=== PATIENT | female | born 1980 | race Caucasian/White ===

== ENCOUNTER → 2017-10-17 | Day surgery (SDC) | payer BC ==
[~2017-10-17] MED LIST: ACETAMINOPHEN 1000 MG/100 ML IV ONE; BACITRACIN 50,000 UNIT VIAL ONE; BACITRACIN ZINC 15 GM OINT ONE; BIRTH CONTROL; BUPIVACAINE HCL 0.5% INJ 30 ML VIAL INJ ONE; CEFAZOLIN SOD 2 GM/D5W 50ML 50 ML IV ONE; CITALOPRAM; DEXAMETHASONE SOD PHOS INJ 4 MG/ML VIAL ONE; FENTANYL CITRATE/PF 100MCG/2 ML INJ ONE; FLUOXETINE HCL20 MG PO; KETOROLAC TROMETHAMINE 30 MG/ML VIAL ONE; LIDOCAINE HCL 1% 2 ML AMP ONE; LIDOCAINE HCL 2% LOCAL INJ 5 ML SDV VIAL INJ ONE; MIDAZOLAM HCL 2 MG/2 ML VIAL ONE; ONDANSETRON HCL INJ 2 MG/ML VIAL ONE; PROPOFOL IV EMULSION 10 MG/ML 20 ML VIAL ONE; SEVOFLURANE INHAL SOLN 250 ML PEN BTL ONE; SINGULAIR10 MG; TYLENOL WITH C1 EACH PO; WELLBUTRIN SR150 MG PO; [UNRECOGNIZED DRUG - OTHER] PO
--- NOTE | 2017-10-18 01:15 | Operative Report ---
DATE OF PROCEDURE: October 17, 2017 PREOPERATIVE DIAGNOSES 1. Fractures of the 2nd and 3rd metatarsals of the right foot. 2. A fracture of the proximal phalanx of the 4th toe. POSTOPERATIVE DIAGNOSES 1. Fractures of the 2nd and 3rd metatarsals of the right foot. 2. A fracture of the proximal phalanx of the 4th toe. OPERATIONS/PROCEDURES PERFORMED 1. Patient underwent attempted closed reduction of the 2nd and 3rd metatarsals fractures. 2. Followed by an open reduction, internal fixation of the 3rd metatarsal fracture. 3. Open reduction, internal fixation of the 2nd metatarsal fracture. 4. Allograft bone grafting of both the 2nd and 3rd metatarsal fractures. 5. A closed reduction and percutaneous pinning of the 4th toe proximal phalanx fracture. 6. As well as an application of a well-padded splint. RECOVERY COACH: None. ANESTHESIA: General endotracheal anesthesia. IV FLUIDS: Per the anesthesia record. BRIEF DESCRIPTION OF OPERATIVE PROCEDURE: Ms. Guillaume was taken to the operating room and placed in supine position on operating table. Following induction of general anesthesia as well as endotracheal intubation, the patient's right lower extremity was examined under anesthesia. She was found to have bruising and swelling involving her foot. Fluoroscopic evaluation of the right foot demonstrated a displaced 2nd and 3rd metatarsal fracture, as well as a fracture of the proximal phalanx of the 4th toe. Attempts were made to reduce the patient's fractures in a closed fashion. Digital pressure was placed between the 2nd and 3rd metatarsals, but this failed to reduce the fractures. A #0.062 K-wire was inserted into the head of the 3rd metatarsal fracture and using the pin, the metatarsal fracture was manipulated and in attempt to realign the injury. This failed to produce acceptable reduction of the injury. The incision was, therefore, created between the 2nd and 3rd metatarsal. This incision was carried through skin only. Blunt dissection used to deepen the incision. The extensor tendons were identified and protected throughout the remainder of the case. The 3rd metatarsal shaft was identified and retracted in place along the medial and lateral portal of metatarsal shaft. The distal fracture fragment was found to be lodged in the muscle in the interspace between the 3rd and 4th metatarsal and this was freed. There was significant comminution involving the dorsal shaft of the 3rd metatarsal. The metatarsal was brought out to length and the K-wire was advanced capturing the metatarsal in its reduced position. The position of the K-wires as well as reduction of fracture was then assessed using fluoroscopy. Again, the dorsal comminution was illustrated on the patient's fluoroscopic pictures. Attention was then turned to the patient's 2nd metatarsal fracture. The dissection was carried over the 2nd metatarsal and again, soft tissue retractors were placed on the metatarsal shaft. The distal fracture fragment was identified and brought in line with the shaft of the metatarsal. A #0.060 K-wire was inserted from the plantar surface of the foot capturing the metatarsal in its reduced position. This wound was copiously irrigated. The comminuted fragments of the 3rd metatarsal were placed over the dorsal aspect of the metatarsal and the 2nd and 3rd metatarsals were then also bone grafted with combinations of cancellous chips and plate. This wound was then closed in a multilayer fashion. Attention was then turned to the patient's 4th toe proximal phalanx fracture. A #0.045 pin was inserted from distal to proximal transfixing the small toe metatarsal in its reduced position. Fluoroscopic evaluation of the foot at this time in both the AP, lateral and oblique planes identified reduction of the patient's metatarsal injuries with stabilization achieved through pin fixation. The patient's pins were dressed sterilely and the patient was provided a well-padded posterior splint with a toe plate to protect the forefoot. The patient was then awakened, taken to postanesthesia care unit in stable condition. Job#: [id number] CQ
== END | disposition home or self-care (01) ==
LOC: OR 10:11
PROVIDERS: ATTEND Specialist
PROC: 0QSN04Z Reposition Right Metatarsal with Internal Fixation Device, Open Approach (ICD-10-PCS; 2017-10-17)
PROC: 0QSQ34Z Reposition Right Toe Phalanx with Internal Fixation Device, Percutaneous Approach (ICD-10-PCS; 2017-10-17)
PROC: 0QSN04Z Reposition Right Metatarsal with Internal Fixation Device, Open Approach (ICD-10-PCS; principal; 2017-10-17 11:30)
DX: S92.331A Displaced fracture of third metatarsal bone, right foot, initial encounter for closed fracture (principal); S92.324A Nondisplaced fracture of second metatarsal bone, right foot, initial encounter for closed fracture; S92.511A Displaced fracture of proximal phalanx of right lesser toe(s), initial encounter for closed fracture; S92.344A Nondisplaced fracture of fourth metatarsal bone, right foot, initial encounter for closed fracture; Z68.33 Body mass index [BMI] 33.0-33.9, adult; W17.81XA Fall down embankment (hill), initial encounter; Y93.01 Activity, walking, marching and hiking
CPT/HCPCS: 28485 ×2; 28515; 36415; 76001; 84702; C1713; C1762; J1100; J1885; J2001 ×2; J2250; J2405

== ENCOUNTER 2018-03-06 13:43 | Outpatient (RCR) | payer BC ==
[~2018-03-06 13:43] MED LIST changes: -ACETAMINOPHEN 1000 MG/100 ML IV ONE; -BACITRACIN 50,000 UNIT VIAL ONE; -BACITRACIN ZINC 15 GM OINT ONE; -BUPIVACAINE HCL 0.5% INJ 30 ML VIAL INJ ONE; -CEFAZOLIN SOD 2 GM/D5W 50ML 50 ML IV ONE; -DEXAMETHASONE SOD PHOS INJ 4 MG/ML VIAL ONE; -FENTANYL CITRATE/PF 100MCG/2 ML INJ ONE; -KETOROLAC TROMETHAMINE 30 MG/ML VIAL ONE; -LIDOCAINE HCL 1% 2 ML AMP ONE; -LIDOCAINE HCL 2% LOCAL INJ 5 ML SDV VIAL INJ ONE; -MIDAZOLAM HCL 2 MG/2 ML VIAL ONE; -ONDANSETRON HCL INJ 2 MG/ML VIAL ONE; -PROPOFOL IV EMULSION 10 MG/ML 20 ML VIAL ONE; -SEVOFLURANE INHAL SOLN 250 ML PEN BTL ONE
== END 2018-03-24 ==
LOC: PT 13:43
PROVIDERS: ATTEND Specialist
DX: S92.331D Displaced fracture of third metatarsal bone, right foot, subsequent encounter for fracture with routine healing (principal); S92.324D Nondisplaced fracture of second metatarsal bone, right foot, subsequent encounter for fracture with routine healing; S92.344D Nondisplaced fracture of fourth metatarsal bone, right foot, subsequent encounter for fracture with routine healing; S92.511D Displaced fracture of proximal phalanx of right lesser toe(s), subsequent encounter for fracture with routine healing; Z48.89 Encounter for other specified surgical aftercare

== ENCOUNTER 2018-12-29 03:03 | Observation (INO) | payer BC ==
[~2018-12-29] VITALS: Ht 167.6 cm; Wt 104.3 kg
--- OUTSIDE RECORDS SUMMARY | 2018-12-29 03:06 | XMS REPORT | Continuity of Care Document ---
Author Author [employer] Address Unknown Phone Unavailable Care Team Providers Care Hospital Nurse Name Role Phone [employer] Unavailable Unavailable Problems Problem Status Onset Date Classification Date Reported Comments Source Viral upper respiratory tract infection 04/06/2017 Diagnosis 04/06/2017 [facility] Eustachian tube disorder 02/20/2016 Diagnosis 02/20/2016 [facility] Sore throat symptom 02/20/2016 Diagnosis 02/20/2016 [facility] Allergic rhinitis 02/20/2016 Diagnosis 02/20/2016 [facility] Eustachian Tube Disorder Problem 04/06/2017 [facility] Sore Throat Symptom Problem 04/06/2017 [facility] Influenza with Respiratory Manifestation Other than Pneumonia Problem 04/06/2017 [facility] Allergic Rhinitis Problem 04/06/2017 [facility] Medications Medication Details Route Status Patient Instructions Ordering Provider Order Date Source Control , Daily Active 10/16/2017 [facility] Citalopram , Daily Active 10/16/2017 [facility] Montelukast Sodium (Singulair) 10 Mg Tablet, Daily Active 10/16/2017 [facility] Beyaz 3 mg-0.02 mg-0.451 mg (24) tablet Beyaz 3 mg-0.02 mg-0.451 mg (24) tablet TK 1 T PO ONCE A DAY Active [facility] 24 HR Bupropion Hydrochloride 150 MG Extended Release Oral Tablet bupropion HCl XL 150 mg 24 hr tablet, extended release TAKE ONE (1) TABLET(S) BY MOUTH ONCE A DAY . TO BE TAKEN WITH WELLBUTRIN XL 300MG FOR A TOTAL OF 450MG. Active [facility] Citalopram 20 MG Oral Tablet citalopram 20 mg tablet Active [facility] Fluoxetine 20 MG Oral Capsule fluoxetine 20 mg capsule Active [facility] Fluoxetine 40 MG Oral Capsule fluoxetine 40 mg capsule TAKE TWO (2) CAPSULE(S) BY MOUTH ONCE A DAY IN THE MORNING. Active [facility] Medrol (Michelet) 4 mg tablets in a dose pack Medrol (Michelet) 4 mg tablets in a dose pack Take as directed on package. Active [facility] montelukast 10 MG Oral Tablet montelukast 10 mg tablet TAKE ONE (1) TABLET(S) BY MOUTH DAILY. Active [facility] levocetirizine dihydrochloride 5 MG Oral Tablet [Xyzal] Xyzal 5 mg tablet Take 1 tablet every day by oral route at bedtime for allergies for 30 days. Active [facility] Brompheniramine Maleate 0.4 MG/ML / Dextromethorphan Hydrobromide 2 MG/ML / Pseudoephedrine Hydrochloride 6 MG/ML Oral Solution [Bromfed DM] Bromfed DM 2 mg-30 mg-10 mg/5 mL syrup Take 5-10 mL EVERY 6-8 HOURS by oral route as needed. Active [facility] 24 HR Bupropion Hydrochloride 300 MG Extended Release Oral Tablet bupropion HCl XL 300 mg 24 hr tablet, extended release TAKE ONE (1) TABLET(S) BY MOUTH ONCE A DAY. Active [facility] Ciprofloxacin 3 MG/ML Ophthalmic Solution ciprofloxacin 0.3 % eye drops INSTILL ONE (1) DROP IN RIGHT EYE EVERY 30 MINUTES. Active [facility] drospiren-e.estrad-l.mefol 3 mg-0.02 mg-0.451 mg(24)/0.451 mg(4)tablet drospiren-e.estrad-l.mefol 3 mg-0.02 mg-0.451 mg(24)/0.451 mg(4)tablet TAKE ONE (1) TABLET(S) BY MOUTH ONCE A DAY. Active [facility] Acetaminophen 325 MG / Hydrocodone Bitartrate 7.5 MG Oral Tablet hydrocodone 7.5 mg-acetaminophen 325 mg tablet TAKE ONE (1) TABLET(S) BY MOUTH EVERY FOUR TO SIX HOURS NEEDED FOR EYE PAIN. Active [facility] NITROFURANTOIN, MACROCRYSTALS 25 MG / Nitrofurantoin, Monohydrate 75 MG Oral Capsule nitrofurantoin monohydrate/macrocrystals 100 mg capsule TAKE ONE (1) CAPSULE(S) BY MOUTH TWICE A DAY. Active [facility] Phenazopyridine hydrochloride 200 MG Oral Tablet phenazopyridine 200 mg tablet TAKE ONE (1) TABLET(S) BY MOUTH BEFORE MEALS. Active [facility] Sulfamethoxazole 800 MG / Trimethoprim 160 MG Oral Tablet sulfamethoxazole 800 mg-trimethoprim 160 mg tablet TAKE ONE (1) TABLET(S) BY MOUTH TWICE A DAY. Active [facility] Acetaminophen With Codeine (Tylenol With Codeine #3 Tablet) 1 Each Tablet As Needed Active [facility] B-Lizbet Control Daily Active [facility] Bupropion Hcl (Wellbutrin Sr) 150 Mg Tablet.er Daily Active [facility] Fluoxetine Hcl 20 Mg Capsule Twice A Day Active [facility] Allergies, Adverse Reactions, Alerts Substance Category Reaction Severity Reaction type Status Date Reported Comments Source Penicillins Allergy to substance 09/23/2011 [facility] Immunizations No Data Provided for This Section Results Order Name Results Value Reference Range Date Interpretation Comments Source Serum or plasma choriogonadotropin ( test) detection Serum or plasma choriogonadotropin ( test) detection NEGATIVE NEGATIVE 10/17/2017 [facility] Influenza A negative 04/06/2017 [facility] Influenza B negative 04/06/2017 [facility] RESULT negative 04/06/2017 [facility] SWAB LOCATION Left and Right tonsillar pillars 04/06/2017 [facility] RESULT negative 02/20/2016 [facility] SWAB LOCATION Left and Right tonsillar pillars 02/20/2016 [facility] RESULT negative 12/05/2015 [facility] SWAB LOCATION Left and Right tonsillar pillars 12/05/2015 [facility] Pathology Reports No Data Provided for This Section Diagnostic Reports No Data Provided for This Section Consultation Notes No Data Provided for This Section Discharge Summaries No Data Provided for This Section History and Physicals No Data Provided for This Section Vital Signs Vital Sign Value Date Comments Source Diastolic (mm Hg) 80 04/06/2017 [facility] Height 67 04/06/2017 [facility] Systolic (mm Hg) 120 04/06/2017 [facility] Weight 205 04/06/2017 [facility] Diastolic (mm Hg) 92 02/20/2016 [facility] Height 67 02/20/2016 [facility] Systolic (mm Hg) 132 02/20/2016 [facility] Weight 270 02/20/2016 [facility] Diastolic (mm Hg) 80 12/05/2015 [facility] Height 66 12/05/2015 [facility] Systolic (mm Hg) 126 12/05/2015 [facility] Weight 258 12/05/2015 [facility] Encounters Location Location Details Encounter Type Encounter Number Reason For Visit Attending Provider ADM Date DC Date Status Source [place] - [facility] - [id number] Britany Rich, FOLDED CLOTH TAPER: [address] [place] [address], Ph. [id number] Britany Layla 12/05/2015 [facility] [place] [facility] - [id number] Britany Rich, FOLDED CLOTH TAPER: [address] [place] [address], Ph. [id number] Britany Rich 02/20/2016 [facility] [place] [facility] - [id number] Crystal Michel, ART[employer] APPLICATOR, [address]: [address] [place] [address], Ph. [id number] Crystal Michel 04/06/2017 [facility] [id number] KT DUNN MD 10/17/2017 [facility] Discharged Recurring [id number] KT DUNN MD 03/06/2018 03/24/2018 [facility] Procedures Procedure Code Date Perfomer Comments Source TREAT METATARSAL FRACTURE 40307 10/17/2017 [facility] TREATMENT OF TOE FRACTURE [id number] 10/17/2017 DUNN [facility] REPOSITION RIGHT METATARSAL WITH INT FIX, OPEN APPROACH [id number] 10/17/2017 [facility] REPOSITION RIGHT TOE PHALANX WITH INT FIX, PERC APPROACH [id number] 10/17/2017 [facility] Delivery [facility] Delivery [id number] [facility] Assessment and Plan No Data Provided for This Section Plan of Care Plan of Care Date Source Prescriptions See Medication Section 03/25/2018 [facility] Social History Social History Date Source No social history information available. 03/25/2018 [facility] Smoking Status Never Smoker 09/23/2011 [facility] Family History No Data Provided for This Section Advance Directives Order Name Results Value Date Source Advance Directives Advance Directives Directive Response Recorded Date/Time Does the patient have an advance directive? No 11/22/14 12:52am If yes, is advance directive on file with [facility]? No 11/22/14 12:52am If not on file with [facility] will patient provide a copy? No 11/22/14 12:52am Do you have a Directive to Physician? No 02/15/18 11:29am Do you have a Medical Power of Ironworker? No 02/15/18 11:29am Do you have an out of hospital Do Not Resuscitate Order? No 02/15/18 11:29am Do you have any special needs we should be aware of? No 02/15/18 11:29am Do you have a support person here with you today? No 02/15/18 11:29am Did patient receive Notice of Privacy Practices? No 02/15/18 11:29am Did patient receive patient rights and responsibilities? No 02/15/18 11:29am 03/25/2018 [facility] Functional Status No Data Provided for This Section
--- OUTSIDE RECORDS SUMMARY | 2018-12-29 03:06 | XMS REPORT | Clinical Summary ---
Author Author [facility] Organization [facility] Address Unknown Phone Unavailable Care Team Providers Care Director Of Restaurant Operations Name Role Phone Gio Julio MD PCP Allergies No Known Allergies Medications End Date Status Medication Sig Dispensed Refills Start Date Active buPROPion XL (WELLBUTRIN TAKE ONE (1) 5 XL) 150 MG 24 hr tablet TABLET(S) BY 8 MOUTH ONCE A DAY (TAKE WITH BUPROPRION XL 300MG FOR A TOTAL OF 450MG). am Active buPROPion XL (WELLBUTRIN TAKE ONE (1) 5 XL) 300 MG 24 hr tablet TABLET(S) BY 8 MOUTH ONCE A DAY. am Active FLUoxetine (PROzac) 40 MG TAKE TWO (2) 5 capsule CAPSULE(S) BY 8 MOUTH ONCE A DAY IN THE MORNING. 07/16/2018 Discontinued drospirenone-e.estradiol- TAKE ONE (1) 11 lm.FA 3-0.02-0.451 mg TABLET(S) BY 8 (24) (4) tablet MOUTH ONCE A DAY. 07/30/2018 ibuprofen-famotidine Take 1 tablet 20 tablet 0 (DUEXIS) 800-26.6 mg by mouth 9 tablet every 8 (eight) hours as needed (mild pain) for up to 14 days. 07/30/2018 famotidine (PEPCID) 20 MG Take 1 tablet 28 tablet 0 tablet (20 mg total) 9 by mouth 2 (two) times a day for 14 days. 07/19/2018 traMADol-acetaminophen Take 2 20 tablet 0 (ULTRACET) 37.5-325 mg tablets by 9 per tablet mouth every 6 (six) hours as needed for moderate pain for up to 3 days. 08/15/2018 docusate sodium (COLACE) Take 1 60 capsule 0 100 MG capsule capsule (100 9 mg total) by mouth 2 (two) times a day for 30 days. Active Problems Not on file Encounters Care Team Description Date Type Specialty SeleneNancy nickersonuj Fibroids 08/28/2018 Office Visit Gynecologic Oncology SeleneNancyuj Pelvic pain in female 07/31/2018 Office Visit Gynecologic Oncology Octavia Robison MA 07/18/2018 Telephone Gynecologic Oncology Angelita Butt APRN 07/16/2018 Anesthesia Obstetrics and Gynecology Event SeleneNancy nickersonuj ROBOTIC HYSTERECTOMY, BILATERAL SALPINGECTOMY 07/16/2018 Surgery Obstetrics and Gynecology [facility] Dysmenorrhea 07/16/2018 Hospital Obstetrics and Gynecology Encounter Nancy Mortonuj 07/15/2018 Telephone Gynecologic Oncology Nancy Mortonuj 07/05/2018 [facility] Radiology Encounter SeleneNancyuj Pre-op evaluation 07/05/2018 Pre-Admit Pre-Admission Testing Testing Appointment Selene Alan 07/01/2018 Telephone Gynecologic Oncology Selene Alan 05/24/2018 Telephone Gynecologic Oncology SeleneNancyuj Excessive bleeding in premenopausal period (Primary Dx) 05/20/2018 Office Visit Gynecologic Oncology after 12/28/2017 Family History Medical History Relation Name Comments Cervical cancer Mother Relation Name Status Comments Mother Social History Date Tobacco Use Types Packs/Day Years Used Quit: 2015 Former Smoker Cigarettes Smokeless Tobacco: Never Used Alcohol Use Drinks/Week oz/Week Comments Yes 3 Standard 1.8 drinks or equivalent Sex Assigned at Date Recorded Not on file Industry Job Start Date Occupation Not on file Not on file Not on file Travel End Travel History Travel Start No recent travel history available. Last Filed Vital Signs Time Taken Vital Sign Reading 08/28/2018 10:41 AM BAG WASHER Blood Pressure 119/78 08/28/2018 10:41 AM BAG WASHER Pulse 90 07/16/2018 11:10 AM BAG WASHER Temperature 37.3 C (99.2 F) 07/16/2018 11:10 AM BAG WASHER Respiratory Rate 14 07/16/2018 11:10 AM BAG WASHER Oxygen Saturation 95% - Inhaled Oxygen - Concentration 08/28/2018 10:41 AM BAG WASHER Weight 106 kg (234 lb) 07/31/2018 10:14 AM BAG WASHER Height 167.6 cm (5' 6") 07/31/2018 10:14 AM BAG WASHER Body Mass Index 37.77 Plan of Treatment Health Maintenance Due Date Last Done Comments INFLUENZA VACCINE 01/23/2019 Procedures Comments Procedure Name Priority Date/Time Associated Diagnosis SURGICAL PATHOLOGY Routine 07/16/2018 REQUEST 11:31 AM BAG WASHER NC AN ELECTIVE Routine 07/16/2018 ENDOTRACHEAL AIRWAY 8:36 AM BAG WASHER Procedure Note - Molly Pitts CRNA - 07/16/2018 8:36 AM BAG WASHER ANESTHESIA INTUBATION Date/Time: 07/16/2018 8:17 AM Performed by: Molly Pitts CRNA Authorized by: Char Browne MD Location: OR Urgency: Elective Difficult Airway: No Anesthesio logist: Char Browne MD Resident/C RNA/AA: Molly Pitts CRNA Performed by: resident/C RNA/AA Mask Ventilatio n: Easy mask Final Airway Type: Endotrache al airway Final Endotrache al Airway: ETT Cuffed: Yes Technique Used: Direct laryngosco py Insertion Site: Oral Blade Type: Flores Laryngosco pe Blade/Vide olaryngosc ope Blade Size: 2 ETT Size (mm): 7.0 Cuff at minimum occlusion pressure: Yes Measured from: Lips ETT to Lips (cm): 21 Placement Verified by: CO2 detection, direct visualizat ion and equal breath sounds Laryngosco pic view: Grade I - full view of glottis Rapid Sequence Induction (RSI): No Modified RSI: No Number of Attempts at Approach: 1 Eyes taped at LOC prior to airway manipulati on. Cords clear, ETT passed with ease. Lips and teeth intact per preop. HYSTERECTOMY, ABDOMINAL, 07/16/2018 Dysmenorrhea LAPAROSCOPIC, 8:00 AM BAG WASHER ROBOT-ASSISTED Special Needs DAVINCI* *, POSSIBLE EXTENDED RECOVERY XR CHEST 2 VW Routine 07/05/2018 Pre-op evaluation 1:45 PM BAG WASHER ECG 12-LEAD Routine 07/05/2018 Pre-op evaluation 1:08 PM BAG WASHER TYPE AND SCREEN Routine 07/05/2018 Pre-op evaluation 1:01 PM BAG WASHER ESTIMATED GFR Routine 07/05/2018 12:45 PM BAG WASHER HC COMPLETE BLD COUNT Routine 07/05/2018 Pre-op evaluation W/AUTO DIFF 12:45 PM BAG WASHER COMPREHENSIVE METABOLIC Routine 07/05/2018 Pre-op evaluation PANEL 12:45 PM BAG WASHER PROTHROMBIN TIME WITH INR Routine 07/05/2018 Pre-op evaluation 12:45 PM BAG WASHER PARTIAL THROMBOPLASTIN Routine 07/05/2018 Pre-op evaluation TIME (PTT) 12:45 PM BAG WASHER after 12/28/2017 Results * Surgical pathology request (07/16/2018 11:31 AM BAG WASHER) [facility] DEPARTMENT OF PATHOLOGY AND GENOMIC MEDICINE Surgical See link below for PDF Lab [facility] DEPARTMENT pathology Report OF PATHOLOGY report AND GENOMIC MEDICINE Result status This is Final Report for [facility] DEPARTMENT [id number] OF PATHOLOGY AND GENOMIC MEDICINE Specimen Performing Organization Address [facility] Cent[facility]ode Phone Number [facility] DEPARTMENT OF [address] [place] [address] PATHOLOGY AND GENOMIC MEDICINE * XR Chest 2 Vw (07/05/2018 1:45 PM BAG WASHER) Specimen Narrative Performed At EXAMINATION:XR CHEST 2 VW RADIANT CLINICAL HISTORY:Z01.818 Encounter for other preprocedural examination, pre-op COMPARISON:None. IMPRESSION: 1.Lungs are clear. 2.Mediastinal contours and cardiac silhouette are unremarkable. 3.No acute osseous abnormality. 4.Surgical clips near the gastroesophageal junction. [id number] Procedure Note Interface, Radiology Results Incoming - 07/05/2018 2:00 PM BAG WASHER EXAMINATION: XR CHEST 2 VW CLINICAL HISTORY: Z01.818 Encounter for other preprocedural examination, pre-op COMPARISON: None. IMPRESSION: 1. Lungs are clear. 2. Mediastinal contours and cardiac silhouette are unremarkable. 3. No acute osseous abnormality. 4. Surgical clips near the gastroesophageal junction. [id number] Performing Organization Address City/[facility]/Zipcode Phone Number [facility] [address] [place] [address] * EKG (07/05/2018 1:08 PM BAG WASHER) Ventricular 79 [facility] MUSE rate Atrial rate 79 [facility] MUSE NC interval 152 [facility] MUSE QRSD interval 76 [facility] M[facility] QT interval 388 [facility] MUSE QTC interval 444 [facility] MUSE P axis 1 62 [facility]USE QRS axis 1 41 [facility] MUSE T wave axis 53 [facility] MUSE EKG impression Normal sinus rhythm-Normal [facility] MUSE ECG-No previous ECGs available- Specimen Narrative Performed At Performing Organization Address City/State/Zipcode Phone Number [facility] MUSE [address] [place] [address] * Type and screen (07/05/2018 1:01 PM BAG WASHER) Pathologist [facility] ABO grouping O [facility] Rh type POS [facility] Antibody screen NEG [place] (gel) [facility] Specimen Blood Performing Organization Address City/[facility]/Zipcode Phone Number [facility] DEPARTMENT OF [address] [place] [address] PATHOLOGY AND [facility] MEDICINE [address] * Estimated GFR (07/05/2018 12:45 PM BAG WASHER) [facility] Estimated GFR 70 mL/min/1.73 m2 [place] Comment: [facility] rpretation G1 >=90 Normal or high G2 60-89Mildly decreased [id number] Mildly to moderately decreased [id number] Moderately to severely decreased G4 15-29Severely decreased G5 <15Kidney failure The eGFR was calculated using the Chronic Kidney Disease Epidemiology Collaboration (CKD-EPI) equation. Interpretation is based on recommendations of the National Kidney Foundation-Kidney Disease Outcomes Quality Initiative (NKF-KDOQI) published in 2014. Specimen Plasma specimen Performing Organization Address City/State/Zipcode Phone Number [facility] DEPARTMENT OF [address] [place] [address] PATHOLOGY AND [facility] MEDICINE [address] * Partial thromboplastin time, activated (07/05/2018 12:45 PM BAG WASHER) [facility] PTT 30.0 23.0 - 36.0 sec [place] Comment: [facility] PTT therapeutic range for HOSPITAL unfractionated heparin is 61.0-112.0 seconds which corresponds to Anti-Xa 0.3-0.7 U/ml. Specimen Blood Performing Organization Address City/State/Zipcode Phone Number [facility] DEPARTMENT OF [address] [place] [address] PATHOLOGY AND GENOMIC MEDICINE [address] * Prothrombin time with INR (07/05/2018 12:45 PM BAG WASHER) [facility] Prothrombin 13.8 11.5 - 14.[address] [facility] INR 1.1 [place] Comment: [facility] Normalized HOSPITAL Ratio (INR) is a therapeutic monitoring tool for patients who are stable on oral anticoagulant therapy. An INR of 2.0-3.0 is suggested for deep vein thrombosis/pulmonary embolism. Specimen Blood Performing Organization Address City/[facility]/[place] [address] PATHOLOGY AND GENOMIC MEDICINE [address] * CBC with platelet and differential (07/05/2018 12:45 PM BAG WASHER) [facility] WBC 8.73 4.50 - 11.00 k/uL [facility] RBC 4.81 4.20 - 5.50 m/uL [facility] HGB 12.8 12.0 - 16.0 g/dL [facility] HCT 42.4 37.0 - 47.0 % [facility] MCV 88.1 82.0 - 100.0 fL [facility] MCH 26.6 (L) 27.0 - 34.0 pg [facility] MCHC 30.2 (L) 31.0 - 37.0 g/dL [facility] RDW - SD 50.7 37.0 - 55.0 fL [facility] MPV 11.0 8.8 - 13.2 fL [facility] Platelet count 295 150 - 400 k/uL [facility] Nucleated RBC 0.00 /100 WBC [facility] Neutrophils 57.9 39.0 - 69.0 % [facility] Lymphocytes 33.9 25.0 - 45.0 % [facility] Monocytes 6.0 0.0 - 10.0 % [facility] Eosinophils 1.7 0.0 - 5.0 % [facility] Basophils 0.3 0.0 - 1.0 % [facility] Immature 0.2Comment: "Immature 0.0 - 1.0 % [place] granulocytes granulocytes" (promyelocytes, [facility] myelocytes, metamyelocytes) HOSPITAL Specimen Blood Performing Organization Address City/[facility]/Zipcode Phone Number [facility] DEPARTMENT OF [address] [place] [address] PATHOLOGY AND GENOMIC MEDICINE [address] * Comprehensive metabolic panel (07/05/2018 12:45 PM BAG WASHER) Sodium 140 135 - 148 mEq/L [facility] Potassium 4.0 3.5 - 5.0 mEq/L [facility] Chloride 102 98 - 112 mEq/L [facility] CO2 25 24 - 31 mEq/L [facility] Anion gap 13@ANIO 7 - 15 mEq/L [facility] BUN 11 6 - 20 mg/dL [facility] Creatinine 1.01 (H) 0.50 - 0.90 mg/dL [facility] Glucose 95 65 - 99 mg/dL [facility] Calcium 9.4 8.3 - 10.2 mg/dL [facility] Protein 7.7 6.3 - 8.3 g/dL [place] Comment: [facility] HOSPITAL 4.6-7.0 g/dL 1 week 4.4-7.6 g/dL 7 months-1year 5.1-7.3 g/dL 1-2 years5.6-7 .5 g/dL >3 years6.0-8 .0 g/dL 18-150 6.3-8.3 g/dL Albumin 3.3 (L) 3.5 - 5.0 g/dL [facility] A/G ratio 0.8 0.7 - 3.8 [facility] Alkaline 83 35 - 104 U/L [place] phosphatase [facility] AST 15 10 - 35 U/L [facility] ALT 14 5 - 50 U/L [facility] Total bilirubin <0.2 0.0 - 1.2 mg/dL [facility] Specimen Plasma specimen Performing Organization Address City/[facility]/Zipcode Phone Number [facility] DEPARTMENT OF [address] [place] [address] PATHOLOGY [place] [address] HOSPITAL after 12/28/2017 Insurance Type Payer Benefit Subscriber ID Effective Phone Address Plan / Dates Group PPO BCBS BCBS xxxxxxxxxxxx 2008- CHOICE Present PPO/MARY KAY LOCKE PPO Advance Directives Patient has advance care planning documents on file. For more information, [facility] contact: Babar Obrien [address] [place] [address]
--- OUTSIDE RECORDS SUMMARY | 2018-12-29 03:07 | XMS REPORT | Encounter Summary ---
Author Organization Unknown Address [address] [place] [address] Phone [phone] Reason for Visit Medical Complaint Instructions 1. Eustachian tube disorder Medrol (Michelet) 4 mg tablets in a dose pack middle ear fluid: care instructions 2. Sore throat symptom rapid strep group A, throat Discussion Note: None recorded. Plan of Care Patient Instructions Start on FLonase and zyrtec 10mg daily x 14 days. If symptoms do not improve follow with fever, call clinic or see pcp. Reminders Provider Appointments None recorded. Lab Rapid Strep Group a, Throat 12/05/2015 [facility] Referral None recorded. Procedures None recorded. Surgeries None recorded. Imaging None recorded. Medications Name Start Date Beyaz 3 mg-0.02 mg-0.451 mg (24) tablet TK 1 T PO ONCE A DAY bupropion HCl XL 150 mg 24 hr tablet, extended release TK 1 T PO D citalopram 20 mg tablet fluoxetine 20 mg capsule fluoxetine 40 mg capsule TK ONE C PO QAM Medrol (Michelet) 4 mg tablets in a dose pack Take as directed on package. montelukast 10 mg tablet TK 1 T PO QD Medications Administered None recorded. Vitals Height Weight BMI Blood Pressure 5 ft 6 in 258 lbs 41.6 126/80 Lab Results Date Name Result Description Value Range Status Rapid Strep Group a, Throat Result negative Swab Location Left and Right tonsillar pillars Allergies Name Reaction Severity Onset Penicillins Problems Name Status Onset Date Source Eustachian Tube Disorder Active Encounter Sore Throat Symptom Active Encounter Influenza with Respiratory Manifestation Other than Pneumonia Active Encounter Procedures Date Name Performed by Delivery Information not available Vaccine List None recorded. Social History Smoking Status Never Smoker Past Encounters 12/05/2015 Eustachian Tube Disorder; Sore Throat Symptom Britany Rich, MACHINE PRESERVATIVE FILLER: [address] [facility] [place] [address], Ph. History of Present Illness Ear Complaint Reported By: Patient HPI: Location: right. Quality: ; aching. Severity: worse. Duration: intermittent. Onset/Timing: still present. Context: no sick contacts, no recent swimming/water in ear, no exposure to second hand smoke, no head trauma, not grinding teeth, no recent air travel. Modifying factors: does not hurt to lie on, or pull on ear, does not hurt to chew, OTC medication. Associated Symptoms: no discharge from the ears, no nose/sinus problems, no popping noise in the ears, no ringing in the ears, no fever, no chills, no dizziness, no vertigo, no headache, earache Throat-Oral Complaint Reported By: Patient HPI: Location: throat. Quality: sore throat, congested, dry or hacking cough. Severity: moderate, pain level 4/10. Duration: 3 days. Onset/Timing: gradual. Context: no sick contacts, no foreign travel, non-smoker. Modifying factors: OTC medication. Associated Symptoms: no sputum production, no shortness of breath, no wheezing, no change in number of pillows needed to sleep at night, no sweats, no significa nt weight gain, no significant weight loss, no morning cough, no vomiting, no diarrhea, no rash, no nausea, sore throat Review of Systems Basic Reported By: Patient Constitutional: Constitutional: no fever Eyes: Eyes: no eye complaints Hzoo-Cqlz-Fhxsr-Throat: Ears: ear pain. Nose: nose/sinus problems. Mouth/Throat: no bleeding gums, no mouth complaints, no teeth problems, sore throat Cardiovascular: Cardiovascular: no chest pain, no shortness of breath, no known heart murmur Respiratory: Respiratory: no wheezing, no shortness of breath, cough Gastrointestinal: Gastrointestinal: no abdominal pain, no vomiting / diarrhea Genitourinary: Genitourinary: no urinary complaints, no discharge Musculoskeletal: Musculoskeletal: no muscle weakness, no arthralgias/joint pain, no back pain, muscle aches Skin: Skin: no abnormal / changing mole, no jaundice, no rashes Neurologic: Neurologic: no loss of consciousness, no weakness, no numbness, no seizures, no dizziness, no headaches Physical Exam Adult Basic, Adult Female Complete Constitutional: General Appearance: obese. Level of Distress: NAD. Ambulation: ambulating normally Psychiatric: Mental Status: active and alert. Orientation: to time, to place, to person Eyes: Lids and Conjunctivae: non-injected, no discharge, no pallor. Pupils: PERRLA. Corneas: grossly intact. EOM: EOMI. Lens: clear. Sclerae: non-icteric. Vision: acuity grossly intact Dlw-Kspa-Mlgiv-Throat: Ears: no lesions on external ear, no outer ear tenderness, EACs clear, TMs clear, middle ear fluid. Hearing: no hearing loss. Nose: no lesions on external nose, nares patent, no septal deviation, nasal passages clear, no sinus tenderness, post nasal drip; nasal turbinate hypertrophic. Lips, Teeth, and Gums: no mouth or lip ulcers, no bleeding gums, normal dentition. Oropharynx: moist mucous membranes, no exudates, tonsils not enlarged, erythema Neck: Neck: supple, trachea midline, no masses, FROM. Lymph Nodes: no cervical LAD, no supraclavicular LAD. Thyroid: no enlargement, non-tender, no nodules Lungs: Respiratory effort: no dyspnea, no tachypnea, no use of accessory muscles, no intercostal retractions. Auscultation: breath sounds normal Cardiovascular: Heart Auscultation: RRR, no murmurs. Neck vessels: no carotid bruits
--- OUTSIDE RECORDS SUMMARY | 2018-12-29 03:07 | XMS REPORT | Encounter Summary ---
Author Organization Unknown Address [address] [place] [address] Phone [phone] Reason for Visit Medical Complaint Instructions 1. Viral upper respiratory tract infection rapid strep group A, throat rapid flu (A+B) Bromfed DM 2 mg-30 mg-10 mg/5 mL syrup Discussion Note plenty of fluids, steamed showers, honey w/warm tea, rest. RTC or f/u with PCP if symptoms worsen or do not improve w/symptomatic treatment. watch for signs and symptoms of secondary bacterial infection such as fever returning, shortness of breath, ear pain, or sinus pain and f/u as needed. Patient educational handouts: No information available. Plan of Care Reminders Provider Appointments None recorded. Lab Rapid Strep Group a, Throat 04/06/2017 [facility] Rapid Flu (A+B) 04/06/2017 [facility] Referral None recorded. Procedures None recorded. Surgeries None recorded. Imaging None recorded. Medications Name Start Date Bromfed DM 2 mg-30 mg-10 mg/5 mL syrup Take 5-10 mL EVERY 6-8 HOURS by oral route as needed. bupropion HCl XL 150 mg 24 hr tablet, extended release TAKE ONE (1) TABLET(S) BY MOUTH ONCE A DAY . TO BE TAKEN WITH WELLBUTRIN XL 300MG FOR A TOTAL OF 450MG. bupropion HCl XL 300 mg 24 hr tablet, extended release TAKE ONE (1) TABLET(S) BY MOUTH ONCE A DAY. ciprofloxacin 0.3 % eye drops INSTILL ONE (1) DROP IN RIGHT EYE EVERY 30 MINUTES. citalopram 20 mg tablet drospiren-e.estrad-l.mefol 3 mg-0.02 mg-0.451 mg(24)/0.451 mg(4)tablet TAKE ONE (1) TABLET(S) BY MOUTH ONCE A DAY. fluoxetine 40 mg capsule TAKE TWO (2) CAPSULE(S) BY MOUTH ONCE A DAY IN THE MORNING. hydrocodone 7.5 mg-acetaminophen 325 mg tablet TAKE ONE (1) TABLET(S) BY MOUTH EVERY FOUR TO SIX HOURS NEEDED FOR EYE PAIN. Medrol (Michelet) 4 mg tablets in a dose pack Take as directed on package. montelukast 10 mg tablet TAKE ONE (1) TABLET(S) BY MOUTH DAILY. nitrofurantoin monohydrate/macrocrystals 100 mg capsule TAKE ONE (1) CAPSULE(S) BY MOUTH TWICE A DAY. phenazopyridine 200 mg tablet TAKE ONE (1) TABLET(S) BY MOUTH BEFORE MEALS. sulfamethoxazole 800 mg-trimethoprim 160 mg tablet TAKE ONE (1) TABLET(S) BY MOUTH TWICE A DAY. Xyzal 5 mg tablet Take 1 tablet every day by oral route at bedtime for allergies for 30 days. Medications Administered None recorded. Vitals Height Weight BMI Blood Pressure 5 ft 7 in 205 lbs 32.1 kg/m2 120/80 mm[Hg] Lab Results Date Name Specimen Result Interpretation Description Value Range Status Address Rapid Flu (A+B) Influenza a negative [facility]: [address] [place] [address] Influenza B negative [facility]: [address] [place] [address] Rapid Strep Group a, Throat Result negative [facility]: [address] [place] [address] Swab Location Left and Right tonsillar pillars [facility]: [address] [place] [address] Allergies None recorded. Problems Name Status Onset Date Source Eustachian Tube Disorder Active Encounter Sore Throat Symptom Active Encounter Allergic Rhinitis Active Encounter Influenza with Respiratory Manifestation Other than Pneumonia Active Encounter Procedures Date Name Performed by Delivery Information not available Vaccine List None recorded. Social History Smoking Status Never Smoker Past Encounters 04/06/2017 Viral Upper Respiratory Tract Infection Crystal Michel PASTEURIZING SUPERVISOR, S: [address] [place] [address], Ph. History of Present Illness Cough Reported By: Patient HPI: Location: chest. Quality: sore throat, hacking cough, dry cough. Duration: 4 days. Severity: moderate. Onset/Timing: sudden. Context: no foreign travel, non-smoker, sick contact; no asthma. Modifying factors: OTC medication. Associated Symptoms: no sputum production, no shortness of breath, no wheezing Review of Systems Basic Reported By: Patient Constitutional: Constitutional: fever Bade-Uzao-Zriwo-Throat: Ears: ear pain. Nose: nose/sinus problems. Mouth/Throat: sore throat Cardiovascular: Cardiovascular: no chest pain, no shortness of breath, no known heart murmur Respiratory: Respiratory: no wheezing, no shortness of breath, cough Physical Exam Adult Basic Reported By: Patient Constitutional: General Appearance: healthy-appearing, well-nourished, well-developed. Level of Distress: NAD. Ambulation: ambulating normally Psychiatric: Mental Status: active and alert Wjm-Imoo-Ibtsi-Throat: Ears: no lesions on external ear, no outer ear tenderness, EACs clear, middle ear fluid. Hearing: no hearing loss. Nose: no lesions on external nose, nares patent, no septal deviation, nasal passages clear, no sinus tenderness, post nasal drip. Lips, Teeth, and Gums: no mouth or lip ulcers, no bleeding gums, normal dentition. Oropharynx: moist mucous membranes, no exudates, tonsils not enlarged, erythema Neck: Neck: supple, trachea midline, no masses, FROM. Lymph Nodes: anterior cervical LAD Lungs: Respiratory effort: no dyspnea, no tachypnea, no use of accessory muscles. Auscultation: breath sounds normal Cardiovascular: Heart Auscultation: RRR, no murmurs
--- OUTSIDE RECORDS SUMMARY | 2018-12-29 03:07 | XMS REPORT ---
Author Author [facility] Address Unknown Phone Unavailable Care Team Providers Care Oracle Ende[employer] Consultant Name Role Phone Unavailable Unavailable Payers Payer Name Policy Type Policy Number Effective Date Expiration Date Problems This patient has no known problems. Allergies, Adverse Reactions, Alerts Allergy Name Allergy Type Status Severity Reaction(s) Onset Date Inactive Date Treating Clinician Comments Penicillins DA Active U 2009-06-27 00:00:00 Medications This patient has no known medications.
--- OUTSIDE RECORDS SUMMARY | 2018-12-29 03:07 | XMS REPORT | Encounter Summary ---
Author Organization Unknown Address [address] [place] [address] Phone [phone] Reason for Visit Medical Complaint; sore throat, drainage, sinus x 4 days Instructions 1. Eustachian tube disorder middle ear fluid: care instructions Medrol (Michelet) 4 mg tablets in a dose pack Xyzal 5 mg tablet 2. Allergic rhinitis 3. Sore throat symptom rapid strep group A, throat Discussion Note: None recorded. Plan of Care Patient Instructions Start on Flonase and continue singulair. Stop zyrtec at home. If noted fever, wet purulent cough, call clinic or see pcp. Reminders Provider Appointments None recorded. Lab Rapid Strep Group a, Throat 02/20/2016 [facility] Referral None recorded. Procedures None recorded. Surgeries None recorded. Imaging None recorded. Medications Name Start Date Beyaz 3 mg-0.02 mg-0.451 mg (24) tablet TK 1 T PO ONCE A DAY bupropion HCl XL 150 mg 24 hr tablet, extended release TK 1 T PO D citalopram 20 mg tablet fluoxetine 40 mg capsule TK ONE C PO QAM Medrol (Michelet) 4 mg tablets in a dose pack Take as directed on package. Xyzal 5 mg tablet Take 1 tablet every day by oral route at bedtime for allergies for 30 days. Medications Administered None recorded. Vitals Height Weight BMI Blood Pressure 5 ft 7 in 270 lbs 42.3 132/92 Lab Results Date Name Result Description Value Range Status Rapid Strep Group a, Throat Result negative Swab Location Left and Right tonsillar pillars Allergies None recorded. Problems Name Status Onset Date Source Eustachian Tube Disorder Active Encounter Sore Throat Symptom Active Encounter Allergic Rhinitis Active Encounter Influenza with Respiratory Manifestation Other than Pneumonia Active Encounter Procedures Date Name Performed by Delivery Information not available Vaccine List None recorded. Social History Smoking Status Never Smoker Past Encounters 02/20/2016 Eustachian Tube Disorder; Allergic Rhinitis; Sore Throat Symptom Britany Rich, STUDY LEAD: [address] [place] [address], Ph. History of Present Illness Rzwlv-Qbjzswqczy-Vmxaxyc Reported By: Patient HPI: Location: head/sinuses. Quality: sore throat, nasal/sinus congestion. Duration: 4days. Severity: moderate. Onset/Timing: gradual. Context: no sick contacts, no foreign travel, non-smoker. Modifying factors: OTC medication; singulair. Associated Symptoms: no sputum production, no shortness of breath, no wheezing, no change in number of pillows needed to sleep at night, no sweats, no significant weight gain, no significant weight loss, no morning cough, no sore throat, no vomiting, no diarrhea, no rash, no nausea Review of Systems Basic Reported By: Patient Constitutional: Constitutional: no fever Eyes: Eyes: no eye complaints Gkjl-Fndt-Jjtyo-Throat: Ears: ear pain. Nose: nose/sinus problems. Mouth/Throat: no bleeding gums, no mouth complaints, no teeth problems, sore throat Cardiovascular: Cardiovascular: no chest pain, no shortness of breath, no known heart murmur Respiratory: Respiratory: no cough, no wheezing, no shortness of breath Gastrointestinal: Gastrointestinal: no abdominal pain, no vomiting / diarrhea Genitourinary: Genitourinary: no urinary complaints, no discharge Musculoskeletal: Musculoskeletal: no muscle aches, no muscle weakness, no arthralgias/joint pain, no back pain Skin: Skin: no abnormal / changing mole, no jaundice, no rashes Neurologic: Neurologic: no loss of consciousness, no weakness, no numbness, no seizures, no dizziness, no headaches Physical Exam Adult Basic, Adult Female Complete Constitutional: General Appearance: healthy-appearing, well-nourished, well-developed, overweight. Level of Distress: NAD. Ambulation: ambulating normally Psychiatric: Mental Status: active and alert. Orientation: to time, to place, to person Eyes: Lids and Conjunctivae: non-injected, no discharge, no pallor. Pupils: PERRLA. Corneas: grossly intact. EOM: EOMI. Lens: clear. Sclerae: non-icteric. Vision: acuity grossly intact Clg-Yelu-Bwyph-Throat: Ears: no lesions on external ear, no [...]
[2018-12-29] MEDS ORDERED: ONDANSETRON HCL INJ 2MG/ML 2ML 2 MG/ML VIAL IV STA (03:24)
[2018-12-29] MEDS ORDERED: MORPHINE SULFATE 5 MG/ML VIAL IV ONE (03:30)
[2018-12-29] MEDS ORDERED: SODIUM CHLORIDE 0.9% 100 ML 100 ML IV ONE (03:30)
[2018-12-29] MEDS ORDERED: MORPHINE SULFATE INJ 4 MG/ML INJ 1ML ONE (03:35)
[2018-12-29 04:00] VITALS: BP 114/65
--- NOTE | 2018-12-29 04:28 | Diagnostic Imaging Report ---
CT Abdomen and Pelvis without contrast INDICATION: Epigastric pain TECHNIQUE: Thin collimation axial images obtained from the diaphragm to the level of the pubic symphysis without nonionic intravenous contrast. Dose reduction techniques used: Automated exposure control, adjustment of the mAs and/or kVp according to patient size, standardized low-dose protocol, and/or iterative reconstruction technique. RADIATION DOSE: Total DLP: 783.58 mGy*cm Estimated effective dose: (DLP x 0.015 x size factor) mSv CTDIvol has been reviewed. It is below the limits set by the Radiation Protocol Committee (RPC). COMPARISON: None. ABDOMEN FINDINGS: Lung Bases: Clear. The visualized portion of the mediastinum is normal. Liver: Normal in attenuation without mass. Gallbladder: Present and is distended without gallstones, sludge, gallbladder wall thickening, or pericholecystic fluid. Biliary tree: No ductal dilatation. Pancreas: Normal attenuation without mass. Spleen: Normal size without mass. Adrenal Glands: No evidence for mass. Kidneys: Right: No renal calculus. No cortical mass or hydronephrosis Left: No renal calculus. No cortical mass or hydronephrosis Lymph Nodes: No lymphadenopathy. Aorta: Normal in diameter. PELVIS FINDINGS: Bowel: Stomach: Postoperative changes suggestive of sleeve gastrectomy. Small Bowel: Small bowel loops in the left hemiabdomen are distended with fluid to a diameter of 3.7 cm. No mural thickening. No edema in the small bowel mesentery. No clear transition point. Large Bowel: Moderate burden of formed stool throughout. No mural thickening or pericolonic fluid. Appendix: Not visualized and may be absent or collapsed. Bladder: Under distended. Ureters: No ureteral dilatation or calculus. The uterus is absent. No adnexal mass. Peritoneum/retroperitoneum: No free fluid or fluid collection Bones: Unremarkable for age. IMPRESSION: 1. Fluid distended small bowel loops in the left hemiabdomen are suggestive of very low-grade partial small bowel obstruction or severe ileus. 2. Moderate burden of stool throughout the colon. Please correlate with history of constipation. Signed by: Dr. Samanta Topete MD on 12/29/2018 4:25 AM
[2018-12-29] MEDS ORDERED: FENTANYL CITRATE/PF 100MCG/2 ML INJ ONE (04:43)
[2018-12-29] MEDS ORDERED: FENTANYL CITRATE/PF 100MCG/2 ML INJ IV ONE (04:45)
[2018-12-29] MEDS ORDERED: ONDANSETRON HCL INJ 2MG/ML 2ML 2 MG/ML VIAL IV PRN (05:15)
[2018-12-29] MEDS ORDERED: MORPHINE SULFATE INJ 4 MG/ML INJ 1ML IV PRN (05:15)
--- OUTSIDE RECORDS SUMMARY | 2018-12-29 05:24 | XMS REPORT | Clinical Summary ---
Author Author [facility] Organization [facility] Address Unknown Phone Unavailable Care Team Providers Care Technician Telecommunication Systems Name Role Phone Gio Julio MD PCP [...] BILATERAL SALPINGECTOMY 07/16/2018 Surgery Obstetrics and Gynecology [facility] Dysmenorrhea 07/16/2018 Hospital Obstetrics and Gynecology Encounter Nancy Mortonuj 07/15/2018 Telephone Gynecologic Oncology Nancy Mortonuj 07/05/2018 [facility] Radiology Encounter SeleneNancyuj Pre-op evaluation 07/05/2018 [...] Taken Vital Sign Reading 08/28/2018 10:41 AM DROP BOARD WORKER Blood Pressure 119/78 08/28/2018 10:41 AM DROP BOARD WORKER Pulse 90 07/16/2018 11:10 AM DROP BOARD WORKER Temperature 37.3 C (99.2 F) 07/16/2018 11:10 AM DROP BOARD WORKER Respiratory Rate 14 07/16/2018 11:10 AM DROP BOARD WORKER Oxygen Saturation 95% - Inhaled Oxygen - Concentration 08/28/2018 10:41 AM DROP BOARD WORKER Weight 106 kg (234 lb) 07/31/2018 10:14 AM DROP BOARD WORKER Height 167.6 cm (5' 6") 07/31/2018 10:14 AM DROP BOARD WORKER Body Mass Index 37.77 Plan of Treatment Health Maintenance Due Date Last Done Comments INFLUENZA VACCINE 01/23/2019 Procedures Comments Procedure Name Priority Date/Time Associated Diagnosis SURGICAL PATHOLOGY Routine 07/16/2018 REQUEST 11:31 AM DROP BOARD WORKER MO AN ELECTIVE Routine 07/16/2018 ENDOTRACHEAL AIRWAY 8:36 AM DROP BOARD WORKER Procedure Note - Molly Pitts CRNA - 07/16/2018 8:36 AM DROP BOARD WORKER ANESTHESIA INTUBATION Date/Time: 07/16/2018 8:17 AM Performed [...] HYSTERECTOMY, ABDOMINAL, 07/16/2018 Dysmenorrhea LAPAROSCOPIC, 8:00 AM DROP BOARD WORKER ROBOT-ASSISTED Special Needs DAVINCI* *, POSSIBLE EXTENDED RECOVERY XR CHEST 2 VW Routine 07/05/2018 Pre-op evaluation 1:45 PM DROP BOARD WORKER ECG 12-LEAD Routine 07/05/2018 Pre-op evaluation 1:08 PM DROP BOARD WORKER TYPE AND SCREEN Routine 07/05/2018 Pre-op evaluation 1:01 PM DROP BOARD WORKER ESTIMATED GFR Routine 07/05/2018 12:45 PM DROP BOARD WORKER HC COMPLETE BLD COUNT Routine 07/05/2018 Pre-op evaluation W/AUTO DIFF 12:45 PM DROP BOARD WORKER COMPREHENSIVE METABOLIC Routine 07/05/2018 Pre-op evaluation PANEL 12:45 PM DROP BOARD WORKER PROTHROMBIN TIME WITH INR Routine 07/05/2018 Pre-op evaluation 12:45 PM DROP BOARD WORKER PARTIAL THROMBOPLASTIN Routine 07/05/2018 Pre-op evaluation TIME (PTT) 12:45 PM DROP BOARD WORKER after 12/28/2017 Results * Surgical pathology request (07/16/2018 11:31 AM DROP BOARD WORKER) [facility] DEPART[facility] OF PATHOLOGY AND GENOMIC MEDICINE Surgical See link below for PDF Lab [facility] DE[facility] pathology Report OF PATHOLOGY report AND GENOMIC MEDICINE Result status This is Final Report for [facility] [id number] OF PATHOLOGY AND GENOMIC MEDICINE Specimen Performing Organization Address [facility] Phone Number [facility] DEPARTMENT OF [address] [place] [address] PATHOLOGY AND GENOMIC MEDICINE * XR Chest 2 Vw (07/05/2018 1:45 PM DROP BOARD WORKER) Specimen Narrative Performed At EXAMINATION:XR CHEST 2 VW RADIANT CLINICAL HISTORY:Z01.818 Encounter for other preprocedural examination, pre-op COMPARISON:None. IMPRESSION: 1.Lungs are clear. 2.Mediastinal contours and cardiac silhouette are unremarkable. 3.No acute osseous abnormality. 4.Surgical clips near the gastroesophageal junction. [id number] Procedure Note Interface, Radiology Results Incoming - 07/05/2018 2:00 PM DROP BOARD WORKER EXAMINATION: XR CHEST 2 VW CLINICAL HISTORY: Z01.818 Encounter for other preprocedural examination, pre-op COMPARISON: None. IMPRESSION: 1. Lungs are clear. 2. Mediastinal contours and cardiac silhouette are unremarkable. 3. No acute osseous abnormality. 4. Surgical clips near the gastroesophageal junction. [id number] Performing Organization Address City/[facility]/Zipcode Phone Number [facility] [address] [place] [address] * EKG (07/05/2018 1:08 PM DROP BOARD WORKER) Ventricular 79 [facility] rate Atrial rate 79 [facility] MO interval 152 [facility] QRSD interval 76 [facility] QT interval 388 [facility] QTC interval 444 [facility] P axis 1 62 [facility] QRS axis 1 41 [facility] T wave axis 53 [facility] EKG impression Normal sinus rhythm-Normal [facility] ECG-No previous ECGs available- Specimen Narrative Performed At Performing Organization Address City/State/Zipcode Phone Number [facility] [address] [place] [address] * Type and screen (07/05/2018 1:01 PM DROP BOARD WORKER) Pathologist [facility] ABO grouping O [facility] Rh type POS [facility] Antibody screen NEG SURRY (gel) [facility] Specimen Blood Performing Organization Address City/[facility]/Zipcode Phone Number [facility] OF [address] [place] [address] PATHOLOGY AND [facility] MEDICINE [address] * Estimated GFR (07/05/2018 12:45 PM DROP BOARD WORKER) [facility] Estimated GFR 70 mL/min/1.73 m2 SURRY Comment: [facility] rpretation G1 >=90 Normal or high G2 60-89Mildly decreased O2b63-04 Mildly to moderately decreased V4t62-21 Moderately to severely decreased G4 15-29Severely decreased G5 <15Kidney failure The eGFR was calculated using the Chronic Kidney Disease Epidemiology Collaboration (CKD-EPI) equation. Interpretation is based on recommendations of the National Kidney Foundation-Kidney Disease Outcomes Quality Initiative (NKF-KDOQI) published in 2014. Specimen Plasma specimen Performing Organization Address City/State/Zipcode Phone Number [facility] OF [address] [place] [address] PATHOLOGY AND [facility] MEDICINE [address] * Partial thromboplastin time, activated (07/05/2018 12:45 PM DROP BOARD WORKER) [facility] PTT 30.0 23.0 - 36.0 sec SURRY Comment: JAIN PTT therapeutic range for HOSPITAL unfractionated heparin is 61.0-112.0 seconds which corresponds to Anti-Xa 0.3-0.7 U/ml. Specimen Blood Performing Organization Address City/State/Zipcode Phone Number [facility] OF [address] [place] [address] PATHOLOGY AND GENOMIC MEDICINE [address] * Prothrombin time with INR (07/05/2018 12:45 PM DROP BOARD WORKER) [facility] Prothrombin 13.8 11.5 - 14.5 sec [facility] INR 1.1 SURRY Comment: [facility] International Normalized HOSPITAL Ratio (INR) is a therapeutic monitoring tool for patients who are stable on oral anticoagulant therapy. An INR of 2.0-3.0 is suggested for deep vein thrombosis/pulmonary embolism. Specimen Blood Performing Organization Address City/[facility]/[place] [address] PATHOLOGY AND GENOMIC MEDICINE [address] * CBC with platelet and differential (07/05/2018 12:45 PM DROP BOARD WORKER) [facility] WBC 8.73 4.50 - 11.00 k/uL [facility] RBC 4.81 4.20 - 5.50 m/uL [facility] HGB 12.8 12.0 - 16.0 g/dL [facility] HCT 42.4 37.0 - 47.0 % [facility] MCV 88.1 82.0 - 100.0 fL [facility] MCH 26.6 (L) 27.0 - 34.0 pg [facility] MCHC 30.2 (L) 31.0 - 37.0 g/dL [facility] RDW - SD 50.7 37.0 - 55.0 fL [facility] MPV 11.0 8.8 - 13.2 fL [facility] Platelet count 295 150 - 400 k/uL [facility] Nucleated RBC 0.00 /100 WBC [facility] Neutrophils 57.9 39.0 - 69.0 % [facility] Lymphocytes 33.9 25.0 - 45.0 % [facility] Monocytes 6.0 0.0 - 10.0 % [facility] Eosinophils 1.7 0.0 - 5.0 % [facility] Basophils 0.3 0.0 - 1.0 % [facility] Immature 0.2Comment: "Immature 0.0 - 1.0 % SURRY granulocytes granulocytes" (promyelocytes, JAIN myelocytes, metamyelocytes) HOSPITAL Specimen Blood Performing Organization Address City/[facility]/Zipcode Phone Number [facility] OF [address] [place] [address] PATHOLOGY AND GENOMIC MEDICINE [address] * Comprehensive metabolic panel (07/05/2018 12:45 PM DROP BOARD WORKER) Sodium 140 135 - 148 mEq/L [facility] Potassium 4.0 3.5 - 5.0 mEq/L [facility] Chloride 102 98 - 112 mEq/L [facility] CO2 25 24 - 31 mEq/L [facility] Anion gap 13@ANIO 7 - 15 mEq/L [facility] BUN 11 6 - 20 mg/dL [facility] Creatinine 1.01 (H) 0.50 - 0.90 mg/dL [facility] Glucose 95 65 - 99 mg/dL [facility] Calcium 9.4 8.3 - 10.2 mg/dL [facility] Protein 7.7 6.3 - 8.3 g/dL SURRY Comment: [facility] HOSPITAL 4.6-7.0 g/dL 1 week 4.4-7.6 g/dL 7 months-1year 5.1-7.3 g/dL 1-2 years5.6-7 .5 g/dL >3 years6.0-8 .0 g/dL 18-150 6.3-8.3 g/dL Albumin 3.3 (L) 3.5 - 5.0 g/dL [facility] A/G ratio 0.8 0.7 - 3.8 [facility] Alkaline 83 35 - 104 U/L [facility] phosphatase [facility] AST 15 10 - 35 U/L [facility] ALT 14 5 - 50 U/L [facility] Total bilirubin <0.2 0.0 - 1.2 mg/dL [facility] Specimen Plasma specimen Performing Organization Address City/[facility]/Zipcode Phone Number [facility] OF [address] [place] [address] PATHOLOGY [place] [address] HOSPITAL after 12/28/2017 Insurance Type Payer Benefit Subscriber ID Effective Phone Address Plan / Dates Group PPO BCBS BCBS xxxxxxxxxxxx 2008- CHOICE Present PPO/MARY [employer]AY LOC[employer] PPO Advance Directives Patient has advance care planning documents on file. For more information, [facility] contact: Babar Obrien [address] [place] [address]
--- OUTSIDE RECORDS SUMMARY | 2018-12-29 05:24 | XMS REPORT | Continuity of Care Document ---
Author Author [employer] Address Unknown Phone Unavailable Care Team Providers Care Applications Coordinator Name Role Phone ProFounder Information Splendia Unavailable Unavailable Problems Problem Status Onset Date [...] Date Source Control , Daily Active 10/16/2017 [facility] Citalopram , Daily Active 10/16/2017 [facility] Montelukast Sodium (Singulair) 10 Mg Tablet, Daily Active 10/16/2017 [facility] Beyaz 3 mg-0.02 mg-0.451 mg (24) tablet [...] Tablet) 1 Each Tablet As Needed Active [facility] B-Lizbet Control Daily Active [facility] Bupropion Hcl (Wellbutrin Sr) 150 Mg Tablet.er Daily Active [facility] Fluoxetine Hcl 20 Mg Capsule Twice A Day Active [facility] Allergies, Adverse Reactions, Alerts Substance Category Reaction Severity Reaction type Status Date Reported Comments Source Penicillins Allergy to substance 09/23/2011 [facility] Immunizations No Data Provided for This Section Results Order Name Results Value Reference Range Date Interpretation Comments Source Serum or plasma choriogonadotropin ( test) detection Serum or plasma choriogonadotropin ( test) detection NEGATIVE NEGATIVE 10/17/2017 [facility] Influenza A negative 04/06/2017 [facility] Influenza B [...] Date Status Source [place] - [facility] - [id number] Britany Rich, HOUSE MANAGER: [address] [place] [address], Ph. [id number] Britany Layla 12/05/2015 [facility] [place] - [facility] - [id number] Britany Rich, HOUSE MANAGER: [address] [place] [address], Ph. [id number] Britany Rich 02/20/2016 [facility] [place] - [facility] - [id number] Crystal Michel, TANK HOUSE SUPERVISOR, S: [address] [place] [address], Ph. [id number] Crystal Michel 04/06/2017 [facility] Registered [facility] Day [facility] [id number] KT DUNN MD 10/17/2017 [facility] Discharged Recurring [id number] KT DUNN MD 03/06/2018 03/24/2018 [facility] Procedures Procedure Code Date Perfomer Comments Source TREAT METATARSAL FRACTURE [id number] 10/17/2017 [facility] TREATMENT OF TOE FRACTURE [id number] 10/17/2017 DUNN [facility] REPOSITION RIGHT METATARSAL WITH INT FIX, OPEN APPROACH [id number] 10/17/2017 [facility] REPOSITION RIGHT TOE PHALANX WITH INT FIX, PERC APPROACH [id number] 10/17/2017 [facility] Delivery [facility] Delivery [phone] [facility] Assessment and Plan No Data Provided for This Section Plan of Care Plan of Care Date Source Prescriptions See Medication Section 03/25/2018 [facility] Social History Social History Date Source No social history information available. 03/25/2018 [facility] Smoking Status Never Smoker 09/23/2011 [facility] Family History No Data Provided for This Section Advance Directives Order Name Results Value Date Source Advance Directives Advance Directives Directive Response Recorded Date/Time Does the patient have an advance directive? No 11/22/14 12:52am If yes, is advance directive on file with [facility]? No 11/22/14 12:52am If not on file with [facility] will patient provide a copy? No 11/22/14 12:52am Do you have a Directive to Physician? No 02/15/18 11:29am Do you have a Medical Power of Endless Track Vehicle Supervisor? No 02/15/18 11:29am Do you have an [...] rights and responsibilities? No 02/15/18 11:29am 03/25/2018 [facility] Functional Status No Data Provided for This Section
[2018-12-29] MEDS ORDERED: MORPHINE SULFATE INJ 4 MG/ML INJ 1ML IV ONE (06:00)
--- NOTE | 2018-12-29 07:15 | NUR ---
MD RAJAN INTO SEE PT, DISCUSSED POC
[2018-12-29] MEDS: D5.45%NS/KCL 20MEQ 1,000 ML IV SCH ×5 (08:22→22:17)
[2018-12-29 08:26] VITALS: BP 116/58
[2018-12-29 08:30] VITALS: BP 116/58
--- NOTE | 2018-12-29 10:00 | NUR ---
MD MCARTHURHRY INTO SEE PT, DISCUSSED POC
--- NOTE | 2018-12-29 10:03 | NUR ---
Consult note left in patient chart Plan- Clears, fleet's enema, ambulate; non-surgical
[2018-12-29] MEDS ORDERED: SOD PHOSPHATE/SOD BIPHOSPHATE ENEMA 132 ML BTL PR ONE (11:00)
--- NOTE | 2018-12-29 12:04 | NUR ---
ENEMA GIVEN PER MD ORDER, PT AND FAMILY EDUCATED TO NOT GET OOB WITHOUT CALLING FOR ASSISTANCE, VERBALIZED UNDERSTANDING, CALL LIGHT WITHIN REACH
[2018-12-29 12:31] VITALS: BP 117/60
--- NOTE | 2018-12-29 13:05 | NUR ---
PT REPORTS HAVING LARGE BM, MEDICATED PER MD ORDER FOR RANDALL 10/02 , EDUCATED TO NOT GET OOB WITHOUT CALLING FOR ASSISTANCE, PT VERBALIZED UNDERSTANDING, CALL LIGHT WITHIN REACH, FAMILY AT SIDE
[2018-12-29] MEDS ORDERED: ACETAMINOPHEN 325 MG TAB PO PRN (13:15)
[2018-12-29 16:18] VITALS: BP 100/54
[2018-12-29] MEDS: FLUOXETINE HCL 20 MG CAP PO SCH (16:55)
[2018-12-29] MEDS: BUPROPION HCL SR 150 MG TAB PO SCH ×2 (16:56)
--- NOTE | 2018-12-29 16:56 | NUR ---
PT TOLERATING CLEAR LIQUIDS AT THIS TIME, DENIES ANY FLATUS AT THIS TIME, DENIES ANY PAIN, PT HOME MEDICATIONS DOSES VERIFIED AND GIVEN PER MD ORDER TO RESTART,
--- NOTE | 2018-12-29 19:00 | NUR ---
Report and walking rounds completed. Patient in bed resting with family at bedside. Call light within reach.
[2018-12-29 20:00] VITALS: BP 93/53
[2018-12-29 20:12] LABS: BASOPHILS % 0.4 % (0.0-1.0); EOSINOPHILS # (AUTO) 0.2 (0.0-0.4); EOSINOPHILS % 2.2 % (0.0-6.0); HEMATOCRIT 38.4 % (34.2-44.1); HEMOGLOBIN 12.1 g/dL (12.0-16.0); LYMPHOCYTES # (AUTO) 2.8 (1.0-3.2); LYMPHOCYTES % 40.8 % (18.0-39.1); MEAN CORPUSCULAR HEMOGLOBIN 26.8 pg (28-32); MEAN CORPUSCULAR HGB CONC 31.5 g/dL (31-35); MEAN CORPUSCULAR VOLUME 85.1 fL (81-99); MONOCYTES # (AUTO) 0.6 (0.2-0.8); MONOCYTES % 8.1 % (4.4-11.3); NEUTROPHILS # (AUTO) 3.3 (2.1-6.9); NEUTROPHILS % 48.4 % (38.7-80.0); PLATELET COUNT 243 x10e3/uL (140-360); RED BLOOD COUNT 4.51 x10e6/uL (3.6-5.1); RED CELL DISTRIBUTION WIDTH 15.9 % (11.7-14.4)
[2018-12-29 20:26] LABS: ALANINE AMINOTRANSFERASE 10 IU/L (0-55); ALBUMIN 3.5 g/dL (3.5-5.0); ALBUMIN/GLOBULIN RATIO 1.1 (0.8-2.0); ALKALINE PHOSPHATASE 66 IU/L (40-150); ANION GAP 13.1 mmol/L (8-16); BLOOD UREA NITROGEN 7 mg/dL (7-26); BUN/CREATININE RATIO 9 (6-25); CALCIUM 8.7 mg/dL (8.4-10.2); CARBON DIOXIDE 25 mmol/L (22-29); CHLORIDE 106 mmol/L (98-107); EST GLOMERULAR FILTRATION RATE > 60 ML/MIN (60-); GLUCOSE 94 mg/dL (74-118); POTASSIUM 4.1 mmol/L (3.5-5.1); SODIUM 140 mmol/L (136-145)
[2018-12-30] VITALS (8 sets, daily range): BP systolic 94–120; BP diastolic 55–67
[2018-12-30 05:50] LABS: BASOPHILS % 0.7 % (0.0-1.0); EOSINOPHILS # (AUTO) 0.1 (0.0-0.4); EOSINOPHILS % 2.1 % (0.0-6.0); HEMATOCRIT 36.1 % (34.2-44.1); HEMOGLOBIN 11.2 g/dL (12.0-16.0); LYMPHOCYTES # (AUTO) 2.4 (1.0-3.2); LYMPHOCYTES % 39.6 % (18.0-39.1); MEAN CORPUSCULAR HEMOGLOBIN 26.7 pg (28-32); MONOCYTES # (AUTO) 0.4 (0.2-0.8); NEUTROPHILS # (AUTO) 3.1 (2.1-6.9); NEUTROPHILS % 50.4 % (38.7-80.0); PLATELET COUNT 224 x10e3/uL (140-360); RED CELL DISTRIBUTION WIDTH 16.1 % (11.7-14.4)
[2018-12-30 06:07] LABS: ALANINE AMINOTRANSFERASE 11 IU/L (0-55); ALBUMIN 3.3 g/dL (3.5-5.0); ALBUMIN/GLOBULIN RATIO 1.1 (0.8-2.0); ALKALINE PHOSPHATASE 66 IU/L (40-150); ANION GAP 12.3 mmol/L (8-16); BLOOD UREA NITROGEN 5 mg/dL (7-26); BUN/CREATININE RATIO 6 (6-25); CALCIUM 8.5 mg/dL (8.4-10.2); CARBON DIOXIDE 23 mmol/L (22-29); CHLORIDE 108 mmol/L (98-107); CREATININE, SERUM 0.82 mg/dL (0.57-1.11); EST GLOMERULAR FILTRATION RATE > 60 ML/MIN (60-); GLUCOSE 108 mg/dL (74-118); POTASSIUM 4.3 mmol/L (3.5-5.1); SODIUM 139 mmol/L (136-145)
[2018-12-30] MEDS: D5.45%NS/KCL 20MEQ 1,000 ML IV SCH ×2 (06:08→13:52)
--- NOTE | 2018-12-30 07:19 | NUR ---
RECEIVED PATIENT RESTING IN BED NO SIGNS OF DISTRESS. BED LOW, WHEELS LOCKED, SIDE RAILS X2. CALL LIGHT IN REACH WILL CONTINUE TO MONITOR PATIENT.
[2018-12-30] MEDS: FLUOXETINE HCL 20 MG CAP PO SCH (08:24)
[2018-12-30] MEDS: BUPROPION HCL SR 150 MG TAB PO SCH ×2 (08:24)
[2018-12-30] MEDS ORDERED: FLUOXETINE HCL 20 MG CAP PO SCH (09:00)
--- NOTE | 2018-12-30 09:15 | NUR ---
PATIENT A/O X3, EVEN RESPIRATIONS ON RA. BOWEL SOUNDS ACTIVE, SKIN INTACT, NO EDEMA. PATIENT HAD BM LAST NIGHT. LEFT AC 20G WITH IVF @ 125 CC/HR. VITAL SIGNS STABLE. CALL LIGHT IN REACH WILL CONTINUE TO MONITOR PATIENT.
--- NOTE | 2018-12-30 18:30 | NUR ---
PAGED DR. RAJAN REGARDING PATIENT WANTING TO SEE A GI DOCTOR. ORDER TO CONSULT DR. LIRA. ORDERS IMPLEMENTED.
[2018-12-31] VITALS (7 sets, daily range): BP systolic 98–116; BP diastolic 56–69
--- NOTE | 2018-12-31 | NUR ---
IV rate ordered 125ml/hr. Patient stating IV burning. IV flushed well and good blood return. Patient requested IV fluid to be slowed down. Rate at 50 ml/hr. Tolerating, will continue to monitor.
[2018-12-31] MEDS: D5.45%NS/KCL 20MEQ 1,000 ML IV SCH ×4 (01:07→21:11)
--- NOTE | 2018-12-31 06:39 | Diagnostic Imaging Report ---
EXAM: Abdomen 1 View INDICATION: Small bowel obstruction COMPARISON: Abdominal CT 12/29/2018 FINDINGS: Air and stool throughout the colon. No dilated loops of small bowel. No renal calculi. No abnormal soft tissue masses. No acute osseous abnormality. IMPRESSION: Nonobstructive bowel gas pattern. Signed by: Darwin Mcgill DO on 12/31/2018 6:35 AM
--- NOTE | 2018-12-31 07:02 | NUR ---
RECEIVED PATIENT ASLEEP IN BED NO SIGNS OF DISTRESS. BED LOW, WHEELS LOCKED, SIDE RAILS X2. CALL LIGHT IN REACH WILL CONTINUE TO MONITOR PATIENT.
[2018-12-31] MEDS ORDERED: ONDANSETRON HCL 4 MG ORAL DISINTEGRATING TAB PO PRN (08:45)
[2018-12-31] MEDS: BUPROPION HCL SR 150 MG TAB PO SCH ×2 (08:46)
[2018-12-31] MEDS: FLUOXETINE HCL 20 MG CAP PO SCH (08:46)
--- NOTE | 2018-12-31 13:00 | NUR ---
PAGED DR. LIRA WAITING FOR CALL BACK AT THIS TIME.
--- NOTE | 2018-12-31 14:26 | NUR ---
MOTHER KIARRA ANTONY CALLED AND STATES NO DOCTOR HAS PHYSICALLY SEEN THE PATIENT AND IS UPSET. SHE WOULD LIKE A CALL BACK [phone], SHE IS NOT ON FACESHEET SO I WILL SPEAK WITH PT AND GIVE HER UPDATES AND FIND OUT IF SHE WANTS TO RETURN MOTHERS CALL OR IF SHE WANTS TO.
[2018-12-31] MEDS ORDERED: LACTULOSE SYRUP 20 GM/30 ML UDC PO ONE ×2 (15:00→18:00)
--- NOTE | 2018-12-31 17:40 | NUR ---
SPOKE WITH MD ZHENG AND SAID HE WILL SEE THE PATIENT.
--- NOTE | 2018-12-31 19:00 | NUR ---
Report and walking rounds complete. Patient sitting on side of bed with visitors at bedside. Call light within reach. Will continue to monitor.
--- NOTE | 2018-12-31 19:51 | NUR ---
Paged Dr Dunbar, awaiting call back
--- NOTE | 2018-12-31 19:57 | NUR ---
Spoke with Dr Dunbar and stated partner Dr Serrano will see patient.
[2018-12-31] MEDS ORDERED: PEG (High)/E-LYTE SOLN 4,000 ML BTL PO ONE (21:45)
--- NOTE | 2018-12-31 21:46 | NUR ---
1 liter tap water enema completed with good results. Tolerated well. Will continue to monitor.
[2019-01-01] VITALS: BP 96/52
--- NOTE | 2019-01-01 02:04 | Consultation ---
DATE OF CONSULTATION: 12/31/2018 GI Consult Note. REASON FOR CONSULT: Severe constipation versus partial small-bowel obstruction. HISTORY OF PRESENTING ILLNESS: A 38-year-old very pleasant white female with past medical history of gastric sleeve, multiple colon polyps, got admitted with upper abdominal discomfort for three days. She has a baseline history of constipation. She has not had any bowel movement for more than one week. The patient felt like that she is having stool stuck in her lower abdomen. She has been straining without any success. The patient went to the local urgent care center, where she has had a CT scan that showed findings suggestive of partial small-bowel obstruction with colon loaded with stool. The patient got transferred here for further evaluation and management. She was seen by bariatric surgery, Dr. Alas, who recommended lactulose to relieve constipation. The patient has had a couple of doses of lactulose without any success. She has been on GI soft diet. On further questioning, the patient stated that she has baseline constipation, moves her bowels one or two times a week. Stool is often very hard to pass. She has not seen any gastroenterologists for this. She was seen by Dr. Vallejo more than 10 years ago, at that time she has had a colonoscopy, as per patient 20 polyps were removed. She was advised to have repeat colonoscopy within two years. She never got bothered to get repeat colonoscopy done. On further questioning, the patient stated that she has a history of colon polyp in her family. REVIEW OF SYSTEMS: Twelve point system reviewed, symptomatology is limited as per HPI. PAST MEDICAL HISTORY: Anxiety, depression. PAST SURGICAL HISTORY: Gastric sleeve, foot surgery, appendectomy. FAMILY HISTORY: Colon polyp runs in the family. Negative for any colon cancer. SOCIAL HISTORY: No smoking. Seldom drinks alcohol. Never used any illicit drugs. ALLERGIES: NO KNOWN DRUG ALLERGIES. HOME MEDICATIONS: Bupropion and fluoxetine. INPATIENT MEDICATIONS: List reviewed. She is on lactulose. Along with other medication. PHYSICAL EXAMINATION: VITAL SIGNS: Temperature 97.3, pulse 77, respirations 19, blood pressure 112/66, oxygen saturation 96% on room air. GENERAL: Not in any acute distress. HEENT: Oral mucosa is moist. Anicteric sclerae. CVS: S1, S2. Regular. LUNGS: Bilaterally grossly clear. ABDOMEN: Soft, nondistended, mild palpable lower quadrant tenderness. No rebound, rigidity, or guarding. Positive bowel sounds. RECTAL: Showed a few shy of solid stool, no mass or any hemorrhoids. No blood on the gloved finger. EXTREMITIES: Warm. No leg edema. LABORATORY DATA: WBC 6.14, hemoglobin 11.2, hematocrit 36.1, MCV 86, platelet count 224. Sodium 139, potassium 4.3, chloride 108, bicarb 23, BUN 5, creatinine 0.82, glucose 108. Liver enzymes normal. CT of the abdomen and pelvis without contrast showed: 1. Fluid distended small bowel loops in the left elham-abdomen are suggestive of very low-grade partial small-bowel obstruction or severe ileus. 2. Moderate burden of stool throughout the colon. Please correlate with a history of constipation. Postoperative changes suggestive of sleeve gastrectomy, distended gallbladder without any gallstone, liver and other solid organs are normal. IMPRESSION: 1. Slow transit constipation with colonic fecal stasis. 2. History of colon polyps. PLAN: GoLYTELY to flush out the retained stool. Tap water enema. Once the patient starts having bowel movement and colon gets emptied, then she can go home. I will see her in my office in 1 week for treatment of constipation and followup colonoscopy. I have given the patient my business card, she will call and schedule an appointment. I do not suspect that the patient has any evidence of small-bowel obstruction. I thank Dr. Mendoza for allowing me to participate in the care of this patient. Jesus Serrano MD SA/DOMINIQUE /[id number]
[2019-01-01 04:42] VITALS: BP 122/81
--- NOTE | 2019-01-01 05:02 | NUR ---
Dr Mendoza on unit. Patient stating not wanting another enema at 0700, Dr Mendoza stated okay to cancel one for 0700. Will put in orders for D/C today and can go home around breakfast time.
[2019-01-01] MEDS: D5.45%NS/KCL 20MEQ 1,000 ML IV SCH (05:11)
--- NOTE | 2019-01-06 05:48 | Discharge Summary ---
DISCHARGE DIAGNOSES: 1. Partial small bowel obstruction. 2. Constipation. HISTORY OF PRESENT ILLNESS: The patient is a young lady with history of gastric surgery in the past for obesity, who presented with abdominal pain about 1 week duration, but intensified prior to admission, where she was noticed on her imaging studies to have partial small bowel obstruction and severe constipation, so she was brought in. She did not need an NG tube. She was seen by the surgeon . she did not have a surgical need at this time for her partial bowel obstruction. She was also seen by GI, where she was then given different medications in order to have a bowel movement. After a significant amount of bowel movements, the patient's abdominal pain resolved. Repeat KUB film showed no further evidence of the obstruction. At the time of discharge, she was feeling much better. She really wanted to go home, so she was discharged home in good condition. Follow up with her primary care physician in 1 to 2 weeks. Please see hospital note for full details. MD RENAE Chávez/DOMINIQUE /[id number]
== END 2019-01-01 07:25 | disposition home or self-care (01) ==
LOC: FSED 03:03 → ERHOLD 05:20 → MED/SURG 06:37
PROVIDERS: ADMIT Internal Medicine; ATTEND Internal Medicine
DX: K56.600 Partial intestinal obstruction, unspecified as to cause (principal); K59.00 Constipation, unspecified; Z98.84 Bariatric surgery status; Z86.010 Personal history of colon polyps
CPT/HCPCS: 36415 ×2; 74018; 74176; 80053 ×2; 81003; 83690; 83735; 85025 ×2; 93005; 99284; G0378 ×4; J2270; J2405; Q0162; J3010

== ENCOUNTER 2020-03-23 14:45 | Emergency (ER) | payer BC ==
[~2020-03-23] VITALS: Ht 167.6 cm; Wt 112.9 kg
== END 2020-03-23 16:15 | disposition home or self-care (01) ==
LOC: FSED 15:56
DX: J12.9 Viral pneumonia, unspecified (principal); R05 Cough; R50.9 Fever, unspecified; Z98.84 Bariatric surgery status
CPT/HCPCS: 71250; 93005; 99283

== ENCOUNTER 2021-05-18 18:05 | Emergency (ER) | payer BC ==
[~2021-05-18] VITALS: Ht 167.6 cm; Wt 112.9 kg
[2021-05-18] MEDS ORDERED: BACTRIM 400-801 EACH PO (18:28)
[2021-05-18] MEDS ORDERED: ONDANSETRON ODT4 MG PO (18:36)
[2021-05-18] MEDS ORDERED: ACETAMINOPHEN-1 EAC4 PO (18:36)
[2021-05-18] MEDS ORDERED: CEFDINIR300 MG PO (18:36)
[2021-05-18] MEDS ORDERED: IBUPROFEN IB200 MG PO (18:36)
[2021-05-18] MEDS ORDERED: CEFTRIAXONE 1 GM VIAL IM ONE (18:45)
[2021-05-18] MEDS ORDERED: IBUPROFEN 600 MG TAB PO ONE (18:45)
[2021-05-18] MEDS ORDERED: ONDANSETRON HCL 4 MG ORAL DISINTEGRATING TAB PO ONE (18:45)
[2021-05-18] MEDS ORDERED: IBUPROFEN 600 MG TAB ONE (18:46)
[2021-05-18] MEDS ORDERED: LIDOCAINE HCL 1% LOCAL INJ 20 ML VIAL ONE (18:46)
== END 2021-05-18 18:45 | disposition home or self-care (01) ==
LOC: FSED 18:31
DX: R30.0 Dysuria (principal); N30.91 Cystitis, unspecified with hematuria; F41.9 Anxiety disorder, unspecified; E66.9 Obesity, unspecified
CPT/HCPCS: 99282; J0696; J2001; Q0162

== ENCOUNTER 2021-05-28 14:16 | Emergency (ER) | payer BC ==
[~2021-05-28] VITALS: Ht 167.6 cm; Wt 115.7 kg
[~2021-05-28 14:16] MED LIST changes: +ACETAMINOPHEN-1 EAC4 PO; +BACTRIM 400-801 EACH PO; +CEFDINIR300 MG PO; +IBUPROFEN IB200 MG PO; +ONDANSETRON ODT4 MG PO
[2021-05-28] MEDS ORDERED: CEFTRIAXONE 1 GM VIAL IM ONE (15:15)
== END 2021-05-28 15:30 | disposition home or self-care (01) ==
LOC: FSED 14:38
DX: N30.80 Other cystitis without hematuria (principal); F32.A Depression, unspecified; R30.0 Dysuria
CPT/HCPCS: 81003; 87086; 99282; J0696

== ENCOUNTER 2021-08-14 19:27 | Emergency (ER) | payer BC ==
[~2021-08-14] VITALS: Ht 167.6 cm; Wt 115.7 kg
[2021-08-14] MEDS ORDERED: ONDANSETRON HCL INJ 2MG/ML 2ML 2 MG/ML VIAL IV STA (19:56)
[2021-08-14] MEDS ORDERED: SODIUM CHLORIDE 0.9% 1000ML 1,000 ML IV ONE (20:00)
[2021-08-14] MEDS ORDERED: Morphine 4mg Syringe 4 MG/ML INJ IV ONE (20:00)
[2021-08-14 20:05] LABS: BASOPHILS % 0.3 % (0.0-1.0); EOSINOPHILS # (AUTO) 0.1 (0.0-0.4); EOSINOPHILS % 1.1 % (0.0-6.0); HEMATOCRIT 42.7 % (34.2-44.1); HEMOGLOBIN 14.1 g/dL (12.0-16.0); LYMPHOCYTES # (AUTO) 3.2 (1.0-3.2); LYMPHOCYTES % 34.8 % (18.0-39.1); MEAN CORPUSCULAR VOLUME 90.9 fL (81-99); MONOCYTES # (AUTO) 0.6 (0.2-0.8); NEUTROPHILS # (AUTO) 5.3 (2.1-6.9); NEUTROPHILS % 57.6 % (38.7-80.0); PLATELET COUNT 278 x10e3/uL (140-360); RED CELL DISTRIBUTION WIDTH 13.2 % (11.7-14.4)
[2021-08-14 20:15] LABS: AMYLASE 70 U/L (25-125); LIPASE 21 U/L (8-78)
[2021-08-14 20:20] LABS: ALBUMIN 3.7 g/dL (3.5-5.0); ANION GAP 16.8 mmol/L (8-16); CREATININE, SERUM 1.19 mg/dL (0.57-1.11); POTASSIUM 3.8 mmol/L (3.5-5.1)
[2021-08-14 20:22] LABS: CLARITY,URINE SL CLOUDY (CLEAR); COLOR,URINE YELLOW (YELLOW); KETONES,URINE TRACE (NEGATIVE); LEUKOCYTE ESTERASE ,URINE NEGATIVE (NEGATIVE); NITRITE,URINE NEGATIVE (NEGATIVE); PROTEIN,URINE DIPSTICK NEGATIVE (NEGATIVE); URINE UROBILINOGEN 0.2 mg/dL (0.2 - 1)
[2021-08-14 20:28] LABS: CREATINE KINASE MB 0.5 ng/mL (0-5.0)
[2021-08-14 20:29] LABS: BACTERIA,URINE FEW /HPF; EPITHELIAL CELLS,URINE MODERATE /LPF; RBC,URINE 0-5 /HPF (0-5)
[2021-08-14] MEDS ORDERED: IOPAMIDOL 370 MG/ML 200 ML INFUS..BTL INJ ONE (20:50)
[2021-08-14] MEDS ORDERED: SODIUM CHLORIDE 0.9% 50ML 50 ML ONE (20:50)
[2021-08-14 22:44] VITALS: BP 122/83
== END 2021-08-14 22:55 | disposition home or self-care (01) ==
LOC: EDSEX 19:27 → ER 19:48
DX: R10.33 Periumbilical pain (principal); F41.9 Anxiety disorder, unspecified; F32.A Depression, unspecified; R94.31 Abnormal electrocardiogram [ECG] [EKG]
CPT/HCPCS: 36415; 74177; 80053; 81001; 82150; 82550; 82553; 83605; 83690; 84484; 84702; 85025; 87040; 93005; 99284; C9113; J7030; Q9967

== ENCOUNTER 2024-10-03 06:59 | Emergency (ER) | payer BC, OTHER ==
[~2024-10-03] VITALS: Ht 167.6 cm; Wt 84.8 kg
[~2024-10-03 06:59] MED LIST changes: +NAPROSYN500 MG PO
[2024-10-03 07:13] VITALS: TEMP 98.4
[2024-10-03] MEDS ORDERED: ONDANSETRON HCL INJ 2MG/ML 2ML 2 MG/ML VIAL IV PRN (07:15)
[2024-10-03 07:28] LABS: BASOPHILS % 0.4 % (0.0-1.0); EOSINOPHILS # (AUTO) 0.1 (0.0-0.4); EOSINOPHILS % 1.6 % (0.0-6.0); HEMATOCRIT 41.9 % (34.2-44.1); HEMOGLOBIN 14.2 g/dL (12.0-16.0); LYMPHOCYTES # (AUTO) 2.2 (1.0-3.2); LYMPHOCYTES % 27.2 % (18.0-39.1); MEAN CORPUSCULAR HEMOGLOBIN 32.2 pg (28-32); MEAN CORPUSCULAR HGB CONC 33.9 g/dL (31-35); MONOCYTES # (AUTO) 0.6 (0.2-0.8); MONOCYTES % 6.9 % (4.4-11.3); NEUTROPHILS # (AUTO) 5.2 (2.1-6.9); NEUTROPHILS % 63.5 % (38.7-80.0); PLATELET COUNT 264 x10e3/uL (140-360); RED BLOOD COUNT 4.41 x10e6/uL (3.6-5.1); RED CELL DISTRIBUTION WIDTH 12.5 % (11.7-14.4); WHITE BLOOD COUNT 8.17 x10e3/uL (4.8-10.8)
[2024-10-03 07:49] LABS: BILIRUBIN,URINE MODERATE (NEGATIVE); CLARITY,URINE SL CLOUDY (CLEAR); COLOR,URINE YELLOW (YELLOW); GLUCOSE, URINE NEGATIVE (NEGATIVE); KETONES,URINE 2+ (NEGATIVE); LEUKOCYTE ESTERASE ,URINE NEGATIVE (NEGATIVE); NITRITE,URINE NEGATIVE (NEGATIVE); PH,URINE 6 (5 - 7); PROTEIN,URINE DIPSTICK NEGATIVE (NEGATIVE); URINE UROBILINOGEN 0.2 mg/dL (0.2 - 1)
[2024-10-03] MEDS ORDERED: IOPAMIDOL 370 MG/ML 100 ML INFUS..BTL INJ ONE (07:49)
[2024-10-03 07:51] LABS: BACTERIA,URINE FEW /HPF; EPITHELIAL CELLS,URINE MANY /LPF
[2024-10-03 07:56] LABS: ALBUMIN/GLOBULIN RATIO 1.1 (0.8-2.0); ANION GAP 18.8 mmol/L (8-16); BILIRUBIN,TOTAL 0.7 mg/dL (0.2-1.2); CALCIUM 9.1 mg/dL (8.4-10.2); CREATININE, SERUM 0.76 mg/dL (0.57-1.11); POTASSIUM 3.8 mmol/L (3.5-5.1); TOTAL PROTEIN 7.5 g/dL (6.5-8.1)
[2024-10-03] MEDS: SODIUM CHLORIDE 0.9% 1000ML 1,000 ML IV STA (08:11)
[2024-10-03] MEDS: ONDANSETRON HCL INJ 2MG/ML 2ML 2 MG/ML VIAL IV STA (08:15)
[2024-10-03] MEDS: DICYCLOMINE HCL 20 MG/2 ML VIAL IM ONE (08:30)
[2024-10-03] MEDS ORDERED: ONDANSETRON ODT4 MG PO (09:26)
[2024-10-03] MEDS ORDERED: DICYCLOMINE HCL20 MG PO (09:26)
[2024-10-03] MEDS ORDERED: AMOX TR-K CLV1 EAC2 PO (09:26)
[2024-10-03 09:40] VITALS: PULSE 71; RESP 15; O2SAT 100
== END 2024-10-03 10:00 | disposition home or self-care (01) ==
LOC: ER 07:03
DX: R10.30 Lower abdominal pain, unspecified (principal); K52.9 Noninfective gastroenteritis and colitis, unspecified; F41.9 Anxiety disorder, unspecified; F32.A Depression, unspecified; Z86.0100 Personal history of colon polyps, unspecified; Z98.84 Bariatric surgery status
CPT/HCPCS: 36415; 74177; 80053; 81001; 83690; 84702; 85025; 99284; J0500; J2405; J2470; J7030; Q9967